=== PATIENT | male | born 1995 | race Caucasian/White ===

== ENCOUNTER 2018-06-03 13:30 | Emergency (ER) | payer SELFPAY ==
[~2018-06-03] VITALS: Ht 167.6 cm; Wt 59.2 kg
[2018-06-03 13:56] VITALS: Ht 167.6 cm; Wt 59.2 kg
[2018-06-03] MEDS ORDERED: DIPHENHYDRAMINE 50 MG INJ IV STA (15:22)
[2018-06-03] MEDS ORDERED: METOCLOPRAMIDE 10 MG INJ IV STA (15:22)
[2018-06-03] MEDS ORDERED: SOD CHLORIDE 0.9% 1,000 ML IV STA (15:22)
[2018-06-03] MEDS ORDERED: KETOROLAC 30 MG INJ IV STA (15:22)
--- NOTE | 2018-06-03 16:13 | ERD ---
ER Documentation Chief Complaint Chief Complaint headache x 1 months. nausea, left arm pain HPI This is a 22-year-old male with a nonsignificant past medical history presents ED with complaints of off-and-on headache for the past 2 months. Patient states the headaches come and go and he rates them at a 6 out of 10. Patient states that the headache is usually localized to the left orbital region and he describes it as a pulsating sensation. Headaches usually last about 30 minutes and occur 3 times a week. Patient denies any recent fall or injury to account for headache. Admits to having a head injury that occurred 6 months ago in which he was worked up for and all imaging at that time was negative. Denies history of migraines. Denies fever, chills, blurry vision, changes in vision, confusion, weakness, dizziness, chest pain, shortness breath and all the symptoms. ROS All systems reviewed and are negative except as per history of present illness. Allergies Allergies: Coded Allergies: No Known Allergy (Unverified , 06/03/18) PMhx/Soc Medical and Surgical Hx: pt denies Medical Hx, pt denies Surgical Hx Hx Alcohol Use: No Hx Substance Use: No Hx Tobacco Use: No FmHx Family History: No diabetes Physical Exam Vitals Vital Signs Date Temp Pulse Resp B/P (MAP) Pulse Ox O2 O2 Flow FiO2 Time Delivery Rate 06/03/18 98.1 78 18 146/94 98 13:56 (111) Physical Exam Physical Exam Vitals signs: Reviewed by me. General: Well developed, well nourished, in no acute distress. Patient is awake and alert. Head: Normocephalic, atraumatic. Eyes: Normal conjunctiva, Pupils PERRLA, EOM intact bilaterally x6 ENT: Pharynx is clear, Moist mucous membranes, external ears, nose and mouth normal Respiratory: Clear to auscultation bilaterally with no wheezing, rhonchi, rales, no distress Cardiovascular: RRR, no murmurs, rubs, or gallops : Deferred MSK: No edema, no unilateral swelling, 5/5 strength Back: No midline tenderness Neurologic: Alert and oriented, moving all extremities, normal speech, no focal weakness, no cerebellar signs. Normal mentation Neuro: M/S: Alert and oriented Face: EOMI, face and pharynx with normal sensation and function Motor: Normal strength throughout Sensation: Normal sensation throughout Speech: Normal Cerebel: Normal coordination Normal gait Normal finger to nose DTR: 2+ and symmetric upper/lower extremities Cranial nerves II through XII intact bilaterally Skin: warm and dry, No rash Psych: Anxious Result Diagram: 06/03/18 1530 06/03/18 1530 Results 24 hrs Laboratory Tests Test 06/03/18 15:30 White Blood Count 7.8 10^3/ul Red Blood Count 5.39 10^6/ul Hemoglobin 15.6 g/dl Hematocrit 45.6 % Mean Corpuscular Volume 84.6 fl Mean Corpuscular Hemoglobin 28.9 pg Mean Corpuscular Hemoglobin Concent 34.2 g/dl Red Cell Distribution Width 12.3 % Platelet Count 310 10^3/UL Mean Platelet Volume 10.2 fl Immature Granulocytes % 0.100 % Neutrophils % 47.0 % Lymphocytes % 36.4 % Monocytes % 8.9 % Eosinophils % 7.1 % Basophils % 0.5 % Nucleated Red Blood Cells % 0.0 /100WBC Immature Granulocytes # 0.010 10^3/ul Neutrophils # 3.7 10^3/ul Lymphocytes # 2.8 10^3/ul Monocytes # 0.7 10^3/ul Eosinophils # 0.6 10^3/ul Basophils # 0.0 10^3/ul Nucleated Red Blood Cells # 0.0 10^3/ul Prothrombin Time 13.2 Sec Prothrombin Time Ratio 1.0 INR International Normalized Ratio 0.99 Activated Partial Thromboplast Time 29.8 Sec Sodium Level 143 mmol/L Potassium Level 4.2 mmol/L Chloride Level 104 mmol/L Carbon Dioxide Level 27 mmol/L Anion Gap 12 Blood Urea Nitrogen 17 mg/dl Creatinine 0.85 mg/dl Est Glomerular Filtrat Rate mL/min > 60 mL/min Glucose Level 93 mg/dl Calcium Level 10.1 mg/dl Current Medications Medications Dose Sig/Keiry Start Time Status Last (Trade) Ordered Route PRN Stop Time Admin Dose Reason Admin Sodium 1,000 ml @ Q1H STAT 06/03/18 06/03/18 Chloride 1,000 mls/hr IV 15:22 15:41 06/03/18 16:21 10 mg ONCE STAT 06/03/18 DC 06/03/18 Metoclopramid IV 15:22 15:40 e HCl 06/03/18 15:24 (Reglan) Ketorolac 30 mg ONCE STAT 06/03/18 DC 06/03/18 Tromethamine IV 15:22 15:40 (Toradol) 06/03/18 15:24 25 mg ONCE STAT 06/03/18 DC 06/03/18 Diphenhydrami IV 15:22 15:40 ne HCl 06/03/18 15:24 (Benadryl) Procedures/MDM EKG, MONITORS, & DIAGNOSTIC IMAGING: [place] [address] Radiology Main Line: [phone] DIAGNOSTIC IMAGING REPORT Patient: LD LEVI : 1995 Age: 22 Sex: M MR #: [id number] DOS: 06/03/18 1522 Ordering MD: ARCADIO KOO PA-C Location: [facility] Room/Bed: PROCEDURE: CT brain without contrast CLINICAL INDICATION: Headache TECHNIQUE: CT of the brain without contrast was performed on a multidetector CT scanner, with multiplanar reformats. One or more of the following dose reduction techniques were used: Automated exposure control, adjustment in mA and / or kV according to patient size, use of iterative reconstructive technique. CTDIvol = 40 mGy; DLP = 634 mGy-cm. DICOM images are available. COMPARISON: None available FINDINGS: No acute intracranial hemorrhage is identified. No extra-axial fluid collection is seen. There is no mass effect. No midline shift is identified. The ventricles and sulci are within normal limits for size and configuration. The density of the brain is unremarkable. Montejo-white junctions are preserved. Calvarium and skull base are intact. Mastoid air cells and imaged paranasal sinuses grossly clear. IMPRESSION: Unremarkable noncontrast CT of the brain. RPTAT: VV .Elliott De Leon MD, Date Time Electronically viewed and signed by .Elliott De Leon MD, MD on 06/03/2018 15:52 .O/ CC: ARCADIO KOO PA-C [id number] LAB INTERPRETATION: CBC shows no evidence of hemorrhage or infection Chemistry shows no evidence of significant electrolyte abnormalities or renal insufficiency Coagulation study showed no concerning coagulopathy ER COURSE: The patient was given IV normal saline, Benadryl, Reglan and Toradol The medication was well tolerated and the patient reports improvement in symptoms. The patient was stable throughout ED course. I kept the patient and/or family informed of laboratory and diagnostic imaging results throughout the emergency room course. The patient was promptly evaluated and a treatment plan was devised based on H&P and other data. This plan was discussed with the patient who agreed and had no further questions or concerns prior to discharge. MEDICAL DECISION MAKING: This is a 22-year-old male presents ED with off-and-on headache x 2 months. The patient's headache is unlikely related to serious etiology. The patient does not exhibit any clinical signs or symptoms, and has no risk factors to suggest headache etiology such as subarachnoid hemorrhage, acute vertebral or carotid dissection, intracranial mass, epidural, subdural hematoma, dural venous sinus thrombosis, giant cell arteritis, CVA, encephalitis, meningitis, or pseudotumor cerebri. Given history of headache occurring 3 times a week for about 30 minutes and increased lacrimation of left eye this likely could be a cluster headache. Patient was advised to follow-up with neurology. Patient was given copies of all imaging and blood work done in the emergency department. patient's vitals are stable and patient can be managed with close outpatient follow-up. Patient was advised to follow-up with her primary care in the next 48 hours. Return to ED with any worsening symptoms. DISPOSITION PLAN: We discussed follow up with the patient's primary care doctor within 24 to 48 hours. Patient counseled regarding my diagnostic impression and care plan. Prior to discharge all questions answered. Pt agrees with treatment plan and understands strict return precautions. Precautionary instructions provided including instructions to return to the ER if not improving or for any worsening or changing symptoms or concerns. SPECIALIST FOLLOW UP RECOMMENDED: Neurology Patient has been advised to follow up with primary care in 1-2 days. Disclaimer: Inadvertent spelling and grammatical errors are likely due to EHR/dictation software use and do not reflect on the overall quality of patient care. Also, please note that the electronic time recorded on this note does not necessarily reflect the actual time of the patient encounter. Departure Diagnosis: Primary Impression: Headache Headache type: unspecified Headache chronicity pattern: acute headache Intractability: not intractable Qualified Codes: R51 - Headache Condition: Stable Patient Instructions: Headache, Cluster, Headache, Tension, Self-Care for Headaches Referrals: ASIA HENDRIX MD, JAMES MILLER, CHAD M. MD NAYYAR, KANWAL K TILWALLI, SHILPA D VERPUKHOVSKIY, YURIY MD [facility] () Additional Instructions: Paciente aconseja volver a Departamento de urgencias inmediatamente para sntomas nuevos o que empeoran . Paciente aconseja posteriores con el PCP en 1-2 osborne . Paciente verbaliza la comprehensin y est de acuerdo con el tratamiento y el curso de accin. Si el paciente no tiene ninguna de atencin primaria pueden seguir con [facility] [address] [place] [address] o [facility] + [address] [address] ARCADIO KOO PA-C Jun 03, 2018 16:13
[2018-06-03] MEDS ORDERED: IBUP-1542 PO (16:16)
[2018-06-03 16:26] VITALS: BP 117/70; PULSE 65; RESP 18
== END 2018-06-03 16:28 | disposition home or self-care (01) ==
LOC: FTE 13:30
DX: R51 Headache (principal); M79.602 Pain in left arm
CPT/HCPCS: 36415; 70450; 80048; 85025; 85610; 85730; 96361; 96374; 96375; 99285; J1200; J1885; J2765; J7030